=== PATIENT | male | born 2000 | race Caucasian/White ===

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

== ENCOUNTER → 2022-05-09 | Outpatient (CLI) | payer OTHER ==
[~2022-05-09] MED LIST changes: +CETI-24; +COLA100C5 PO; +GUAN1TAB16; +MAGN400T35
== END ==
LOC: M EKG 10:52
PROVIDERS: ATTEND Psychiatry & Neurology Psychiatry
DX: F90.1 Attention-deficit hyperactivity disorder, predominantly hyperactive type (principal)

== ENCOUNTER → 2024-08-07 | Outpatient (REF) | payer OTHER ==
[2024-08-07 15:05] LABS: GC DNA AMPLIFICATION NEGATIVE (NEGATIVE)
[2024-08-07 15:53] LABS: Trichomonas vaginalis (AMP) NOT DETECTED (NEGATIVE)
[2024-08-07 18:12] LABS: THYROID STIMULATING HORMONE 1.238 uIU/ML (0.55-4.78)
[2024-08-07 18:13] LABS: ALBUMIN 4.4 G/DL (3.2-5.2); ALKALINE PHOSPHATASE 102 U/L (40-129); ALT/SGPT 32 U/L (7.0-40); AST/SGOT 22 U/L (<34); BILIRUBIN,TOTAL 0.5 MG/DL (0.3-1.2); BLOOD UREA NITROGEN 13 MG/DL (9-23); CALCIUM LEVEL 9.8 MG/DL (8.5-10.1); CARBON DIOXIDE LEVEL 29 MMOL/L (20-31); CHLORIDE LEVEL 103 MMOL/L (98-107); CHOLESTEROL LEVEL 208 MG/DL (<200); CHOLESTEROL RISK RATIO 6.11 (<5); CREATININE FOR GFR 0.86 MG/DL (0.70-1.30); GLOMERULAR FILTRATION RATE > 60.0 (>60); GLUCOSE, FASTING 82 MG/DL (60-100); LDL CHOLESTEROL 148.2 MG/DL (<100); POTASSIUM SERUM 4.5 MMOL/L (3.5-5.1); SODIUM LEVEL 140 MMOL/L (136-145); TOTAL 25(OH) VITAMIN D 25.9 NG/ML (20.0-100.0); TOTAL PROTEIN 7.5 G/DL (5.7-8.2); TRIGLYCERIDES LEVEL 129 MG/DL (<150)
[2024-08-07 18:32] LABS: HEMOGLOBIN A1c 4.8 % (4.0-6.0)
[2024-08-07 18:37] LABS: HIV 1&2 SCREEN NEGATIVE (NEGATIVE)
[2024-08-07 18:45] LABS: HEPATITIS C VIRUS ABY INDEX 0.02 INDEX (<0.8)
== END ==
LOC: M LAB REF 13:04
PROVIDERS: ATTEND Physician Assistant
DX: Z11.9 Encounter for screening for infectious and parasitic diseases, unspecified (principal); E55.9 Vitamin D deficiency, unspecified; E66.9 Obesity, unspecified

== ENCOUNTER → 2024-11-04 | Outpatient (CLI) | payer OTHER | LOC: M CARPUL 09-16 13:48 | PROVIDERS: ATTEND Physician Assistant | DX: J45.909 Unspecified asthma, uncomplicated (principal) ==